=== PATIENT | female | born 1955 | race African-American/Black ===

== ENCOUNTER 2021-05-25 18:24 | Inpatient (IN) | payer MEDICARE ==
[~2021-05-25] VITALS: Ht 157.5 cm; Wt 72.6 kg
[2021-05-25] MEDS ORDERED: ALBU18HF2 IH (18:37)
[2021-05-25] MEDS ORDERED: CALC0.5C11 PO (18:37)
[2021-05-25] MEDS ORDERED: LACT1CAP61 PO (18:37)
[2021-05-25] MEDS ORDERED: SEVE800T8 PO (18:37)
[2021-05-25] MEDS ORDERED: ONDA-104 PO (18:37)
[2021-05-25] MEDS ORDERED: ACET-2605 PO (18:37)
[2021-05-25] MEDS ORDERED: MIDO5TAB5 PO (18:37)
[2021-05-25] MEDS ORDERED: HYDR10TA37 PO (18:37)
[2021-05-25] MEDS ORDERED: ATOR40TA PO (18:37)
[2021-05-25] MEDS ORDERED: CEFTRIAXONE 1 G in IV DEXTROSE 5% 50 ML IV ONE (19:00)
[2021-05-25] MEDS ORDERED: IV NORMAL SALINE 500 ML IV ONE (19:00)
[2021-05-25] MEDS ORDERED: METRONIDAZOLE 500 MG/NS 100 ML PIGGYBACK IV ONE (19:15)
[2021-05-25] MEDS ORDERED: CEFTRIAXONE /D5W 50ML IVPB **ER PYXIS IV ONE (19:29)
[2021-05-25] MEDS ORDERED: METRONIDAZOLE 500 MG/NS 100ML 100 ML IV ONE (19:29)
[2021-05-25 19:36] LABS: HEMATOCRIT 28.7 % (31.2-41.9); MEAN CORPUSCULAR VOLUME 95.2 fL (75.5-95.3); PLATELET COUNT (AUTO) 170 K/uL (179-408)
[2021-05-25 19:50] LABS: CREATININE 5.4 mg/dL (0.6-1.3); POTASSIUM 4.2 mmol/L (3.5-5.1)
[2021-05-25 19:56] LABS: BILIRUBIN,TOTAL 0.8 mg/dL (0.2-1.0); TOTAL PROTEIN, SERUM 7.1 g/dL (6.4-8.2)
[2021-05-25] MEDS ORDERED: IV NORMAL SALINE 500 ML BAG IV ONE (21:30)
[2021-05-25] MEDS ORDERED: ACETAMINOPHEN 325 MG TABLET PO PRN (23:45)
[2021-05-25] MEDS ORDERED: ONDANSETRON 4 MG/2 ML VIAL IV PRN (23:45)
[2021-05-25] MEDS ORDERED: REMEDY ESSENTIAL ZINC PASTE 113 GM TP PRN (23:45)
[2021-05-25] MEDS ORDERED: MAGNESIUM HYDROXIDE 30 ML LIQUID UDC PO PRN (23:45)
[2021-05-26] MEDS ORDERED: ALBUTEROL SULFATE 8 GM HFA.AER.AD IH SCH
[2021-05-26] MEDS ORDERED: ACETAMINOPHEN ES 500 MG TABLET- SA PATIENTS-PAIN ONLY PO PRN
[2021-05-26] MEDS ORDERED: MIDODRINE HCL 5 MG TABLET PO PRN
[2021-05-26 04:00] VITALS: BP 121/32
[2021-05-26] MEDS ORDERED: CEFEPIME HCL 2 G in IV DEXTROSE 5% 100 ML IV SCH (06:00)
[2021-05-26] MEDS ORDERED: ALBUTEROL SULFATE 2.5 MG/3 ML NEBU NEB PRN (07:00)
[2021-05-26] MEDS ORDERED: VANCOMYCIN IV 1,250 MG in IV DEXTROSE 5% 250 ML IV ONE (08:00)
[2021-05-26 08:49] LABS: CREATININE 6.1 mg/dL (0.6-1.3); MAGNESIUM 2.5 mg/dL (1.8-2.4); MEAN CORPUSCULAR HEMOGLOBIN 31.6 uug (24.7-32.8); MEAN CORPUSCULAR VOLUME 96.5 fL (75.5-95.3); PHOSPHOROUS 6.8 mg/dL (2.5-4.9); PLATELET COUNT (AUTO) 198 K/uL (179-408); POTASSIUM 4.4 mmol/L (3.5-5.1)
[2021-05-26] MEDS ORDERED: Medication Not On Formulary EA (Lactobacillus Acidophilus (Acidophilus) 1 EACH) PO SCH (09:00)
[2021-05-26] MEDS ORDERED: Medication Not On Formulary EA (Calcitriol 0.5 MCG) PO SCH (09:00)
[2021-05-26] MEDS: SEVELAMER CARBONATE 800 MG TABLET PO SCH ×3 (09:47→17:07)
[2021-05-26] MEDS: ACIDOPHILUS/BULGARICUS CHEW TAB PO SCH ×2 (09:47→17:07)
[2021-05-26] MEDS: CALCITRIOL 0.25 MCG CAPSULE PO SCH (09:48)
[2021-05-26] MEDS: hydrOXYzine HCL 10 MG TABLET PO PRN (09:54)
[2021-05-26] MEDS: CEFEPIME HCL 1 G in IV DEXTROSE 5% 50 ML IV SCH (11:54)
[2021-05-26 12:20] VITALS: BP 98/38
[2021-05-26 16:30] VITALS: BP 97/39
[2021-05-26] MEDS: ASPIRIN EC 81 MG TABLET.DR PO SCH (17:07)
[2021-05-26 20:38] VITALS: BP 158/59
[2021-05-26] MEDS: ATORVASTATIN 40 MG TABLET PO SCH (20:50)
[2021-05-27 00:20] VITALS: BP 122/46
[2021-05-27 04:53] VITALS: BP 116/46
[2021-05-27] MEDS ORDERED: VANCOMYCIN IV 500 MG in IV DEXTROSE 5% 100 ML IV PRN (06:00)
[2021-05-27 07:17] LABS: HEMATOCRIT 28.4 % (31.2-41.9); MEAN CORPUSCULAR HEMOGLOBIN 33.2 uug (24.7-32.8); PLATELET COUNT (AUTO) 172 K/uL (179-408)
[2021-05-27 07:21] LABS: CREATININE 7.3 mg/dL (0.6-1.3); POTASSIUM 4.6 mmol/L (3.5-5.1); VANCOMYCIN,RANDOM 16.5 ug/mL (18.0-26.0)
[2021-05-27] MEDS: ASPIRIN EC 81 MG TABLET.DR PO SCH (09:11)
[2021-05-27] MEDS: ACIDOPHILUS/BULGARICUS CHEW TAB PO SCH ×2 (09:11→17:44)
[2021-05-27] MEDS: CALCITRIOL 0.25 MCG CAPSULE PO SCH (09:12)
[2021-05-27] MEDS: SEVELAMER CARBONATE 800 MG TABLET PO SCH ×3 (09:12→17:44)
[2021-05-27] MEDS: CEFEPIME HCL 1 G in IV DEXTROSE 5% 50 ML IV SCH (09:13)
[2021-05-27 11:47] VITALS: BP 107/49
[2021-05-27] MEDS ORDERED: VANCOMYCIN IV 500 MG in IV DEXTROSE 5% 100 ML IV ONE (12:00)
[2021-05-27] MEDS ORDERED: EPOETIN ALFA 10,000 UNITS/ML VIAL SQ ONE (12:00)
[2021-05-27 16:00] VITALS: BP 118/28
[2021-05-27 20:00] VITALS: BP 90/60
[2021-05-27] MEDS: hydrOXYzine HCL 10 MG TABLET PO PRN (20:51)
[2021-05-27] MEDS: ATORVASTATIN 40 MG TABLET PO SCH (20:51)
[2021-05-28] VITALS: BP 109/31
[2021-05-28 04:00] VITALS: BP 137/29
[2021-05-28 06:39] LABS: HEMATOCRIT 29.9 % (31.2-41.9); MEAN CORPUSCULAR HEMOGLOBIN 32.1 uug (24.7-32.8); MEAN CORPUSCULAR VOLUME 95.9 fL (75.5-95.3); PLATELET COUNT (AUTO) 167 K/uL (179-408)
[2021-05-28 07:00] LABS: CREATININE 6.3 mg/dL (0.6-1.3); POTASSIUM 4.6 mmol/L (3.5-5.1)
[2021-05-28 07:08] LABS: NEUTROPHILS % (MANUAL) 0 % (42-75)
[2021-05-28 08:06] LABS: HEPATITIS B SURFACE AG Negative (Negative)
[2021-05-28] MEDS: SEVELAMER CARBONATE 800 MG TABLET PO SCH ×3 (08:39→17:36)
[2021-05-28] MEDS: ASPIRIN EC 81 MG TABLET.DR PO SCH (08:39)
[2021-05-28] MEDS: ACIDOPHILUS/BULGARICUS CHEW TAB PO SCH ×2 (08:39→17:36)
[2021-05-28] MEDS: CALCITRIOL 0.25 MCG CAPSULE PO SCH (08:40)
[2021-05-28] MEDS: CEFEPIME HCL 1 G in IV DEXTROSE 5% 50 ML IV SCH (09:07)
[2021-05-28 09:32] LABS: BILIRUBIN,DIRECT 0.4 mg/dL (0.0-0.2); BILIRUBIN,TOTAL 0.8 mg/dL (0.2-1.0); TOTAL PROTEIN, SERUM 7.8 g/dL (6.4-8.2)
[2021-05-28 10:33] LABS: THYROID STIMULATING HORMONE 3.486 mIU/mL (0.358-3.740)
[2021-05-28 12:00] VITALS: BP 93/26
[2021-05-28 16:00] VITALS: BP 94/30
[2021-05-28] MEDS ORDERED: DEXTROSE 50% 50 ML DISP.SYRIN IV PRN ×2 (17:15→17:30)
[2021-05-28] MEDS ORDERED: INSULIN REGULAR, HUMAN 300 UNIT/3 ML VIAL SQ PRN (17:30)
[2021-05-28] MEDS: BLOOD SUGAR DIAGNOSTIC 1 EACH STRIP VI SCH ×3 (17:36→21:49)
[2021-05-28 18:30] VITALS: BP 100/33
[2021-05-28 20:05] VITALS: BP 120/35
[2021-05-28] MEDS: ATORVASTATIN 40 MG TABLET PO SCH (21:34)
[2021-05-28] MEDS: INSULIN REGULAR, HUMAN 300 UNIT/3 ML VIAL SQ PRN (21:56)
[2021-05-28] MEDS: REMEDY ESSENTIAL ZINC PASTE 113 GM TOP PRN (22:00)
[2021-05-29 00:28] VITALS: BP 104/33
[2021-05-29 04:00] VITALS: BP 119/33
[2021-05-29] MEDS: REMEDY ESSENTIAL ZINC PASTE 113 GM TOP PRN (05:00)
[2021-05-29] MEDS: BLOOD SUGAR DIAGNOSTIC 1 EACH STRIP VI SCH ×4 (06:26→20:11)
[2021-05-29 06:45] LABS: HEMATOCRIT 29.7 % (31.2-41.9); MEAN CORPUSCULAR HEMOGLOBIN 31.8 uug (24.7-32.8); MEAN CORPUSCULAR VOLUME 95.6 fL (75.5-95.3); PLATELET COUNT (AUTO) 187 K/uL (179-408)
[2021-05-29 06:49] LABS: NEUTROPHILS % (MANUAL) 0 % (42-75)
[2021-05-29 07:03] LABS: CREATININE 7.4 mg/dL (0.6-1.3); MAGNESIUM 2.6 mg/dL (1.8-2.4); POTASSIUM 4.9 mmol/L (3.5-5.1)
[2021-05-29] MEDS: SEVELAMER CARBONATE 800 MG TABLET PO SCH ×3 (08:52→17:00)
[2021-05-29] MEDS: ACIDOPHILUS/BULGARICUS CHEW TAB PO SCH ×2 (08:53→17:00)
[2021-05-29] MEDS: ASPIRIN EC 81 MG TABLET.DR PO SCH (08:53)
[2021-05-29] MEDS: CALCITRIOL 0.25 MCG CAPSULE PO SCH (08:54)
[2021-05-29 12:00] VITALS: BP 114/35
[2021-05-29] MEDS: CEFEPIME HCL 1 G in IV DEXTROSE 5% 50 ML IV SCH (12:40)
[2021-05-29] MEDS: VANCOMYCIN FOR PO/GT/NG USE PO SCH ×3 (12:43→20:03)
[2021-05-29] MEDS ORDERED: VANCOMYCIN IV 500 MG in IV DEXTROSE 5% 100 ML IV ONE (14:00)
[2021-05-29] MEDS: INSULIN REGULAR, HUMAN 300 UNIT/3 ML VIAL SQ PRN (15:34)
[2021-05-29 16:33] VITALS: BP 130/33
[2021-05-29 20:00] VITALS: BP 116/42
[2021-05-29] MEDS: ATORVASTATIN 40 MG TABLET PO SCH (20:03)
[2021-05-30 06:12] LABS: HEMATOCRIT 31.4 % (31.2-41.9); MEAN CORPUSCULAR HEMOGLOBIN 31.2 uug (24.7-32.8); MEAN CORPUSCULAR VOLUME 95.3 fL (75.5-95.3); PLATELET COUNT (AUTO) 201 K/uL (179-408)
[2021-05-30 06:31] LABS: NEUTROPHILS % (MANUAL) 0 % (42-75)
[2021-05-30] MEDS: BLOOD SUGAR DIAGNOSTIC 1 EACH STRIP VI SCH ×4 (06:32→21:32)
[2021-05-30 07:02] LABS: BILIRUBIN,TOTAL 0.7 mg/dL (0.2-1.0); MAGNESIUM 2.4 mg/dL (1.8-2.4); PHOSPHOROUS 5.7 mg/dL (2.5-4.9); POTASSIUM 4.6 mmol/L (3.5-5.1); TOTAL PROTEIN, SERUM 7.6 g/dL (6.4-8.2)
[2021-05-30] MEDS: SEVELAMER CARBONATE 800 MG TABLET PO SCH ×3 (08:48→17:39)
[2021-05-30] MEDS: ASPIRIN EC 81 MG TABLET.DR PO SCH (08:49)
[2021-05-30] MEDS: ACIDOPHILUS/BULGARICUS CHEW TAB PO SCH ×2 (08:49→17:39)
[2021-05-30] MEDS: CALCITRIOL 0.25 MCG CAPSULE PO SCH (09:10)
[2021-05-30] MEDS: VANCOMYCIN FOR PO/GT/NG USE PO SCH ×4 (09:21→21:31)
[2021-05-30] MEDS: CEFEPIME HCL 1 G in IV DEXTROSE 5% 50 ML IV SCH (10:03)
[2021-05-30 12:03] VITALS: BP 141/50
[2021-05-30] MEDS: INSULIN REGULAR, HUMAN 300 UNIT/3 ML VIAL SQ PRN ×2 (12:24→21:34)
[2021-05-30] MEDS: METRONIDAZOLE 500 MG/NS 100ML 500 MG in PREMIXED 1 EACH IV SCH ×2 (14:06→21:32)
[2021-05-30 15:53] VITALS: BP 74/31
[2021-05-30 16:00] VITALS: BP 122/49
[2021-05-30 20:40] VITALS: BP 108/66
[2021-05-30] MEDS: ATORVASTATIN 40 MG TABLET PO SCH (21:31)
[2021-05-31 04:00] VITALS: BP 123/53
[2021-05-31] MEDS: METRONIDAZOLE 500 MG/NS 100ML 500 MG in PREMIXED 1 EACH IV SCH ×2 (05:09→14:44)
[2021-05-31 06:31] LABS: HEMATOCRIT 29.9 % (31.2-41.9); MEAN CORPUSCULAR HEMOGLOBIN 31.9 uug (24.7-32.8); MEAN CORPUSCULAR VOLUME 95.2 fL (75.5-95.3); PLATELET COUNT (AUTO) 189 K/uL (179-408)
[2021-05-31 06:33] LABS: NEUTROPHILS % (MANUAL) 0 % (42-75)
[2021-05-31] MEDS: BLOOD SUGAR DIAGNOSTIC 1 EACH STRIP VI SCH ×4 (06:42→21:09)
[2021-05-31 06:58] LABS: CREATININE 7.2 mg/dL (0.6-1.3); MAGNESIUM 2.5 mg/dL (1.8-2.4); PHOSPHOROUS 6.2 mg/dL (2.5-4.9)
[2021-05-31] MEDS: CALCITRIOL 0.25 MCG CAPSULE PO SCH (10:44)
[2021-05-31] MEDS: SEVELAMER CARBONATE 800 MG TABLET PO SCH ×3 (10:45→19:02)
[2021-05-31] MEDS: ACIDOPHILUS/BULGARICUS CHEW TAB PO SCH ×2 (10:45→19:01)
[2021-05-31] MEDS: ASPIRIN EC 81 MG TABLET.DR PO SCH (10:45)
[2021-05-31] MEDS: VANCOMYCIN FOR PO/GT/NG USE PO SCH ×4 (10:45→20:19)
[2021-05-31] MEDS: CEFEPIME HCL 1 G in IV DEXTROSE 5% 50 ML IV SCH (10:46)
[2021-05-31 10:48] VITALS: BP 113/47
[2021-05-31] MEDS ORDERED: GLIM1TAB PO (11:41)
[2021-05-31] MEDS ORDERED: ALBU2.5V7 NEB (11:41)
[2021-05-31] MEDS ORDERED: ASPI-618 PO (11:41)
[2021-05-31] MEDS ORDERED: ATOR10TA PO (11:41)
[2021-05-31] MEDS ORDERED: MENT113O TOP (11:41)
[2021-05-31] MEDS ORDERED: CEFEPIME IV (11:41)
[2021-05-31] MEDS ORDERED: ACET325T53 PO (11:41)
[2021-05-31] MEDS ORDERED: METR500T PO (11:41)
[2021-05-31] MEDS ORDERED: VANC500V PO (11:41)
[2021-05-31] MEDS: ATORVASTATIN 40 MG TABLET PO SCH (20:19)
[2021-05-31 20:27] VITALS: BP 110/41
[2021-05-31] MEDS: INSULIN REGULAR, HUMAN 300 UNIT/3 ML VIAL SQ PRN (21:10)
== END 2021-05-31 22:51 | DRG 871 ==
LOC: ER 18:24 → TELE3 05-26 05:12 → MEDSURG3 05-29 10:09
PROVIDERS: ADMIT Family Medicine; ATTEND Family Medicine
PROC: 5A1D70Z Performance of Urinary Filtration, Intermittent, Less than 6 Hours Per Day (ICD-10-PCS; principal; 2021-05-27)
PROC: 05HB33Z Insertion of Infusion Device into Right Basilic Vein, Percutaneous Approach (ICD-10-PCS; 2021-05-27)
DX: A41.9 Sepsis, unspecified organism (principal); J15.9 Unspecified bacterial pneumonia; N18.6 End stage renal disease; I21.A1 Myocardial infarction type 2; E43 Unspecified severe protein-calorie malnutrition; A04.71 Enterocolitis due to Clostridium difficile, recurrent; D68.59 Other primary thrombophilia; I31.3 Pericardial effusion (noninflammatory); R18.8 Other ascites; J98.11 Atelectasis; E11.22 Type 2 diabetes mellitus with diabetic chronic kidney disease; Z99.2 Dependence on renal dialysis; Z74.09 Other reduced mobility; E66.9 Obesity, unspecified; Z68.29 Body mass index [BMI] 29.0-29.9, adult; E78.5 Hyperlipidemia, unspecified; Z79.899 Other long term (current) drug therapy; D53.9 Nutritional anemia, unspecified; D69.6 Thrombocytopenia, unspecified; I08.3 Combined rheumatic disorders of mitral, aortic and tricuspid valves; I25.10 Atherosclerotic heart disease of native coronary artery without angina pectoris; K80.20 Calculus of gallbladder without cholecystitis without obstruction; M89.9 Disorder of bone, unspecified; N26.1 Atrophy of kidney (terminal); I95.89 Other hypotension; I50.813 Acute on chronic right heart failure; R53.1 Weakness
CPT/HCPCS: 36415; 70030-TC; 71045; 83550; 83605; 83735; 84100; 84443; 84484; 85025; 86706; 87040; 87070; 87340; 90937; 93005; 93307; 97161; A4663; G0378; J0692; J0696; J0885; J1815; J2405; J3370; J3490; J7030; J7040; J7060

== ENCOUNTER 2021-08-08 09:09 | Inpatient (IN) | payer MEDICARE, OTHER ==
[~2021-08-08] VITALS: Ht 157.5 cm; Wt 72.6 kg
[~2021-08-08 09:09] MED LIST: ACET325T53 PO; ALBU18HF2 IH; ALBU2.5V7 NEB; ASPI-618 PO; ATOR10TA PO; CALC0.5C11 PO; CEFEPIME IV; GLIM1TAB PO; HYDR10TA37 PO; LACT1CAP61 PO; MENT113O TOP; METR500T PO; MIDO5TAB5 PO; ONDA-104 PO; SEVE800T8 PO; VANC500V PO
--- NOTE | 2021-08-08 09:15 | NUR ---
[facility] from [facility] with c/o abd pain and blood in stool. EMT was notified upon arrival by ERMD that our CT is currently down at this facility. Per EMT pt's pmd requested this facility. I called their dispatch per request to see if the pt can be transported to [place] for CT and transported back here, per dispatch this unit has another call and the current ETA is approx 2 hrs. notified.
--- NOTE | 2021-08-08 09:18 | NUR ---
Patient brought in by ambulance from [facility] with complaints of bloody sputum and abdominal pain started last night per pt. History of CKD, dilaysis pt with Left arm AV fistula, alert and oriented x4.
--- NOTE | 2021-08-08 09:20 | NUR ---
MD at bedside, medical screening exam in progress.
--- NOTE | 2021-08-08 09:29 | NUR ---
Spoke with Alexander at dispatch for [facility] and confirmed transport to [place] for CT, ETA 90 mins.
[2021-08-08] MEDS ORDERED: IV NORMAL SALINE 500 ML BAG IV ONE (09:30)
[2021-08-08 09:48] LABS: HEMATOCRIT 33.9 % (31.2-41.9); MEAN CORPUSCULAR HEMOGLOBIN 29.8 uug (24.7-32.8); MEAN CORPUSCULAR VOLUME 92.3 fL (75.5-95.3); PLATELET COUNT (AUTO) 214 K/uL (179-408)
[2021-08-08] MEDS ORDERED: SWABABLE VALVE TRANSFER SET EA MC ONE (10:02)
[2021-08-08] MEDS ORDERED: IV NORMAL SALINE 250 ML IV ONE (10:02)
[2021-08-08] MEDS ORDERED: IOHEXOL 300MG/ML 100 ML INFUS..BTL ONE (10:02)
[2021-08-08 10:38] LABS: CREATININE 3.3 mg/dL (0.6-1.3); POTASSIUM 4.5 mmol/L (3.5-5.1)
[2021-08-08 10:43] LABS: BILIRUBIN,DIRECT 0.3 mg/dL (0.0-0.2); BILIRUBIN,TOTAL 0.5 mg/dL (0.2-1.0); TOTAL PROTEIN, SERUM 7.8 g/dL (6.4-8.2)
--- NOTE | 2021-08-08 11:20 | NUR ---
Patient tansferred to [facility] via [facility] for CT scan with contrast. Patient vitals stable.
--- NOTE | 2021-08-08 12:50 | NUR ---
Pt returned from [facility]. Spoke with Darrel from [facility] radiology dept who stated he was unable to do the CT Scan and he has spoken to [place] radiology dept and the CT will be done here since our CT is operational now. Pt arrives with no s/s of acute distress noted, pt denies any pain. Pt placed back in room 4A.
--- NOTE | 2021-08-08 12:53 | NUR ---
Pt to CT dept via [facility] strak noted.
--- NOTE | 2021-08-08 13:26 | NUR ---
Covid and MRSA specimen sent to lab.
--- NOTE | 2021-08-08 14:15 | NUR ---
Unable to collect UA, pt on scheduled dialysis. MD was informed with verbal order to dc urinalysis order.
--- NOTE | 2021-08-08 14:23 | NUR ---
Called nurse michael to get a bed, said he will call back.
[2021-08-08] MEDS ORDERED: FOLI0.8T2 PO (15:15)
[2021-08-08] MEDS ORDERED: MIDO10TA PO (15:15)
[2021-08-08] MEDS ORDERED: FOLI0.8T23 PO (15:15)
[2021-08-08] MEDS ORDERED: INSU100V39 SQ (15:15)
[2021-08-08] MEDS ORDERED: FAMO20TA8 PO (15:15)
[2021-08-08] MEDS ORDERED: ACET-2154 PO (15:15)
[2021-08-08] MEDS ORDERED: MIDO5TAB5 PO (15:15)
[2021-08-08] MEDS ORDERED: ESCI-9 PO (15:15)
[2021-08-08] MEDS ORDERED: CINA30TA2 PO (15:15)
[2021-08-08] MEDS ORDERED: FURO-152 PO (15:15)
--- NOTE | 2021-08-08 16:57 | NUR ---
Report given to nurse coleman, patient will be in room 306 telemetry.
[2021-08-08] MEDS ORDERED: MORPHINE SULFATE 2 MG/1 ML DISP.SYRIN IV PRN (18:15)
[2021-08-08] MEDS ORDERED: ACETAMINOPHEN 650 MG SUPP.RECT RC PRN (18:15)
[2021-08-08] MEDS ORDERED: LORAZEPAM 2 MG/1 ML VIAL IV PRN (18:15)
[2021-08-08] MEDS ORDERED: ONDANSETRON 4 MG/2 ML VIAL IV PRN (18:15)
--- NOTE | 2021-08-08 18:15 | NUR ---
Transferred pt via stretcher to room 306 telemetry. Patient awake, intact and patent IV site on Right AC. Vitals taken as follows; BP-133/80 VT-61 RR-20 T-97.2 SPO2-96% RA PA-0/10
--- NOTE | 2021-08-08 18:16 | NUR ---
Received pt from ER. Patient came from [facility] with complaint of abdominal pain and spitting up blood, diagnosis is GI bleed. Pt is a/o x 4, no skin tears or redness noted, sinus rhythm on tele and intact. Fluids started per MD order. Pt has been vaccinated against Covid with Moderna x 3. Dialysis dependent pt with AV shunt on left side. Last dialysis was yesterday 08/07 with dialysis days on . Chest xray already taken, pending results.Will endorse to night club manager.
[2021-08-08 18:20] VITALS: BP 137/48
[2021-08-08] MEDS: PANTOPRAZOLE SODIUM 40 MG VIAL IV SCH (19:03)
[2021-08-08] MEDS: IV D5 1/2 NS 1000 ML 1,000 ML IV PRN (19:04)
[2021-08-08 20:12] VITALS: BP 108/45
[2021-08-09 00:03] VITALS: BP 100/47
--- NOTE | 2021-08-09 00:30 | NUR ---
NOTED PATIENT SPITTING OUT SMALL AMOUNT OF OF BRIGHT RED BLOOD, DENIES SOB OR PAIN, WARM AND DRY SKIN, ANSWERS QUESTIONS APPROPRIATELY, BP100/40, HR 64, TEMP 98.3. KEPT NPO ORDERED. WITH CONTINUOUS IVF AT 80 MLS/HR. CLOSELY MONITORED
--- NOTE | 2021-08-09 01:40 | NUR ---
MEDICATED WITH TYLENOL SUPP FOR DIFFUSE TYPE OF ABDOMINAL PAIN. OBSERVED
--- NOTE | 2021-08-09 02:00 | NUR ---
O2 SAT RA 88-89 WITH SLIGHT SOB, PLACED ON 3L NC SATURATION WENT UP TO 96-07%..
[2021-08-09 04:09] VITALS: BP 105/44
--- NOTE | 2021-08-09 06:28 | NUR ---
REMAINS SR ON MONITOR, PATIENT CONTINUE TO SPIT SMALL AMOUNT OF BROWN SECRETION. NPO MAINTAINED.
[2021-08-09 06:53] LABS: HEMATOCRIT 31.6 % (31.2-41.9); MEAN CORPUSCULAR HEMOGLOBIN 30.1 uug (24.7-32.8); MEAN CORPUSCULAR VOLUME 91.7 fL (75.5-95.3); PLATELET COUNT (AUTO) 212 K/uL (179-408)
[2021-08-09 07:32] LABS: BILIRUBIN,TOTAL 0.5 mg/dL (0.2-1.0); CREATININE 4.2 mg/dL (0.6-1.3); MAGNESIUM 2.4 mg/dL (1.8-2.4); PHOSPHOROUS 3.6 mg/dL (2.5-4.9); POTASSIUM 4.5 mmol/L (3.5-5.1); TOTAL PROTEIN, SERUM 7.5 g/dL (6.4-8.2)
[2021-08-09 07:41] LABS: THYROID STIMULATING HORMONE 3.523 mIU/mL (0.358-3.740)
[2021-08-09] MEDS: PANTOPRAZOLE SODIUM 40 MG VIAL IV SCH ×2 (09:25→20:45)
--- NOTE | 2021-08-09 10:16 | NUR ---
Patient receiving dialysis.
[2021-08-09] MEDS: IV D5 1/2 NS 1000 ML 1,000 ML IV PRN (10:33)
[2021-08-09 12:03] VITALS: BP 107/48
--- NOTE | 2021-08-09 12:57 | NUR ---
Dialysis complete. 2L removed. Blood pressure 124/57. Heart Rate 64.
[2021-08-09 16:12] VITALS: BP 109/42
--- NOTE | 2021-08-09 18:39 | NUR ---
Patient received care well throughout shift with no complaints of pain or distress. IV site patent and intact running D5 1/2 NS at 60cc/hr. Patient had dialysis today with 2L removed from patient. Patient awaiting to be seen by Dr. Hernández for further update regarding patient's diagnosis. Bed left in lowest position with call light within reach. Comfort measures provided.
[2021-08-09 20:45] VITALS: BP 126/49
[2021-08-09] MEDS: MUPIROCIN 2% OINT 22 GM TUBE NS SCH (20:50)
[2021-08-09] MEDS ORDERED: MUPIROCIN 2% OINT 22 GM TUBE NS SCH (21:00)
[2021-08-10 00:34] VITALS: BP 133/73
--- NOTE | 2021-08-10 01:40 | NUR ---
Awake alert and oriented x4 upon initial rounds. Patient is on dialysis M-W-F. Was dialyzed yesterday with 2L out. Rt arm AV fistula intact (+) bruit (+) thrill. Patient oliguric. VSS. Needs attended. Denies any pain nor any discomfort. Admitted for UGI bleed. No bleeding noted. Fall precautions maintained. VSS. IVF's infusing well via Rt arm INT. On O2 @ 2.5 L via nasal cannula. On telemetry, patient sinus rhythm on the monitor. Kept comfortable. Will monitor patient.
[2021-08-10 04:00] VITALS: BP 137/52
[2021-08-10 08:03] LABS: HEMATOCRIT 32.7 % (31.2-41.9); MEAN CORPUSCULAR HEMOGLOBIN 29.6 uug (24.7-32.8); PLATELET COUNT (AUTO) 184 K/uL (179-408)
[2021-08-10] MEDS: PANTOPRAZOLE SODIUM 40 MG VIAL IV SCH ×2 (08:36→20:15)
[2021-08-10 08:37] LABS: ALANINE AMINOTRANSFERASE < 6 U/L (14-59); ALKALINE PHOSPHATASE 195 U/L (50-136); ASPARTATE AMINOTRANSFERASE 19 U/L (15-37); BILIRUBIN,TOTAL 0.6 mg/dL (0.2-1.0); CARBON DIOXIDE 29 mmol/L (21-32); CHLORIDE 103 mmol/L (98-107); CREATININE 3.6 mg/dL (0.6-1.3); GLUCOSE 74 mg/dL (74-106); MAGNESIUM 2.2 mg/dL (1.8-2.4); PHOSPHOROUS 3.6 mg/dL (2.5-4.9); POTASSIUM 4.6 mmol/L (3.5-5.1); TOTAL PROTEIN, SERUM 7.7 g/dL (6.4-8.2); UREA NITROGEN, BLOOD 18 mg/dL (7-18)
[2021-08-10] MEDS: MUPIROCIN 2% OINT 22 GM TUBE NS SCH ×2 (08:37→20:15)
--- NOTE | 2021-08-10 09:00 | NUR ---
RECEIVED PATIENT IN BED AWAKE ALERT AND VERBALLY RESPONSIVE DENIES PAIN OR DISCOMFORTS AT THIS TIME PATIENT IS NOTHING PER ORAL EDUCATED REMAIN ON IVF ORDERED WITH NO S/S OF INFILTERATION ON SITE IV SITE IS POSITIONAL WITH POOR VEINOUS ACCESS MD AWARE WITH OKAY TO ORDER MIDLINE AND NOTED.
[2021-08-10] MEDS: IV D5 1/2 NS 1000 ML 1,000 ML IV PRN (10:30)
--- NOTE | 2021-08-10 10:30 | NUR ---
MID LINE INSERTED TO HER RIGHT UPPER ARM AND TOLERATED WELL.
[2021-08-10 12:06] LABS: HEPATITIS B SURFACE AG Negative (Negative)
[2021-08-10 12:41] VITALS: BP 97/49
--- NOTE | 2021-08-10 15:36 | NUR ---
PATIENT HAS BEEN NPO AND IS ASKING FOR FOOD DR COLLADO NOTIFIED WITH OK TO START PATIENT ON RENAL DIET AND NOTED
[2021-08-10 15:49] VITALS: BP 102/55
--- NOTE | 2021-08-10 17:59 | NUR ---
RESTING IN BED TOLERATED DIET ORDERED IVF IN PROGRESS MADE COMFORTABLE WILL CONTINUE TO OBSERVE.
[2021-08-10 20:03] VITALS: BP 93/40
--- NOTE | 2021-08-10 20:13 | NUR ---
Patient in bed awake in no resp.distress noted. Able to make needs known.Denies pain or discomfort at this time.Left arm Av intact with + thrill/bruit.Midline on right upper arm patent and intact with IVF.Tolerated well.O2 at 2LPM via NC saturating well. BP 93/40.18 ,61 and afebrile. notified of low BP nno at this time. Continue safety measures. Call light with in reach.
[2021-08-11] VITALS: BP 122/98
[2021-08-11] MEDS: IV D5 1/2 NS 1000 ML 1,000 ML IV PRN (00:40)
[2021-08-11 04:17] VITALS: BP 128/45
--- NOTE | 2021-08-11 08:00 | NUR ---
PATIENT IS AWAKE ALERT AND ORIENTED REMAIN ON IVF ORDERED WITH NO S/S OF INFILTERATION ON SITE DENIES PAIN OR DISCOMFORTS AT THIS TIME ON O2 AT 1.5 ML WITH ADEQUATE SATS AND NO SOB CALL LIGHTS AND PERSONAL BELONGINGS ARE WITHIN EASY REACH AT THIS TIME
[2021-08-11] MEDS: PANTOPRAZOLE SODIUM 40 MG VIAL IV SCH (08:08)
[2021-08-11] MEDS: MUPIROCIN 2% OINT 22 GM TUBE NS SCH (08:09)
[2021-08-11 11:35] VITALS: BP 115/29
[2021-08-11] MEDS ORDERED: MUPI22OI2 NS (11:58)
[2021-08-11] MEDS ORDERED: PANT40TA2 PO (11:58)
--- NOTE | 2021-08-11 12:00 | NUR ---
PATIENT SEEN BY DR COLLADO WITH ORDER TO DISCHARGE BACK TO [facility] TODAY AND NOTED WILL AWAIT THE DAIRY PROCESSING SUPERVISOR TAXATION ECONOMIST TO CONFIRM THAT [facility] PATIENT.
[2021-08-11 13:56] LABS: MEAN CORPUSCULAR HEMOGLOBIN 29.5 uug (24.7-32.8); MEAN CORPUSCULAR VOLUME 90.7 fL (75.5-95.3); PLATELET COUNT (AUTO) 178 K/uL (179-408)
[2021-08-11 14:04] LABS: MAGNESIUM 2.1 mg/dL (1.8-2.4); PHOSPHOROUS 4.1 mg/dL (2.5-4.9); POTASSIUM 4.8 mmol/L (3.5-5.1)
--- NOTE | 2021-08-11 14:15 | NUR ---
CALL RECEIVED FROM THE ASSISTANT PROFESSOR OF ART STATED THAT [facility] IS ABLE TO TAKE PATIENT AND THAT SHE HAS ARRANGED FOR [facility] TO TRANSPORT PATIENT THIS EVENING AND STATED THAT PATIENTS DAUGHTER JUAN IS AWARE OF THE DISCHARGE AND IS AGREEING.
[2021-08-11 15:19] LABS: NEUTROPHILS % (MANUAL) 0 % (42-75)
--- NOTE | 2021-08-11 16:00 | NUR ---
CALLED [facility] REPORT GIVEN TO LOURDES SILVERIO FOR CONTINUING CARE PATIENT WILL BE PICKED UP AT 1700 TODAY
[2021-08-11 17:05] VITALS: BP 139/46
--- NOTE | 2021-08-11 17:45 | NUR ---
PATIENT DISCHARGED PICKED UP BY [facility] IN SATISFACTORY CONDITION WITH ALL HER PERSONAL BELONGINGS REPORT WAS GIVEN TO ISABEL LAWRENCE THAT DR GARIBAY WANTS CBC,CMP HEPATITIS PANEL AND AMMONIA LEVEL AND SHE EXPRESSED UNDERSTANDING
== END 2021-08-11 17:45 | DRG 377 ==
LOC: ER 09:09 → TELE3 17:46
PROVIDERS: ADMIT Internal Medicine; ATTEND Internal Medicine
PROC: 5A1D70Z Performance of Urinary Filtration, Intermittent, Less than 6 Hours Per Day (ICD-10-PCS; 2021-08-09)
PROC: 05H533Z Insertion of Infusion Device into Right Subclavian Vein, Percutaneous Approach (ICD-10-PCS; principal; 2021-08-10)
PROC: B546ZZA Ultrasonography of Right Subclavian Vein, Guidance (ICD-10-PCS; 2021-08-10)
DX: K29.01 Acute gastritis with bleeding (principal); N18.6 End stage renal disease; E43 Unspecified severe protein-calorie malnutrition; I50.33 Acute on chronic diastolic (congestive) heart failure; D68.59 Other primary thrombophilia; I31.3 Pericardial effusion (noninflammatory); J90 Pleural effusion, not elsewhere classified; I13.2 Hypertensive heart and chronic kidney disease with heart failure and with stage 5 chronic kidney disease, or end stage renal disease; R18.8 Other ascites; J98.11 Atelectasis; E11.22 Type 2 diabetes mellitus with diabetic chronic kidney disease; Z99.2 Dependence on renal dialysis; D63.8 Anemia in other chronic diseases classified elsewhere; D72.819 Decreased white blood cell count, unspecified; E66.9 Obesity, unspecified; E78.5 Hyperlipidemia, unspecified; F32.A Depression, unspecified; G89.29 Other chronic pain; I70.0 Atherosclerosis of aorta; Z20.822 Contact with and (suspected) exposure to COVID-19; Z79.84 Long term (current) use of oral hypoglycemic drugs; I08.1 Rheumatic disorders of both mitral and tricuspid valves; I25.10 Atherosclerotic heart disease of native coronary artery without angina pectoris; D50.0 Iron deficiency anemia secondary to blood loss (chronic); Z74.09 Other reduced mobility; K74.60 Unspecified cirrhosis of liver; M89.9 Disorder of bone, unspecified; Z79.82 Long term (current) use of aspirin; D50.9 Iron deficiency anemia, unspecified; G31.84 Mild cognitive impairment of uncertain or unknown etiology; K80.20 Calculus of gallbladder without cholecystitis without obstruction; M19.90 Unspecified osteoarthritis, unspecified site; K57.30 Diverticulosis of large intestine without perforation or abscess without bleeding; Z79.4 Long term (current) use of insulin; Z68.29 Body mass index [BMI] 29.0-29.9, adult; R10.9 Unspecified abdominal pain; E83.9 Disorder of mineral metabolism, unspecified; Z87.01 Personal history of pneumonia (recurrent); K27.4 Chronic or unspecified peptic ulcer, site unspecified, with hemorrhage
CPT/HCPCS: 36415; 70030-TC; 71045; 83550; 83690; 83735; 83970; 84100; 84443; 85025; 86706; 87340; 90937; A4663; A6209; C9113; G0378; J2405; J7040; Q9967